=== PATIENT | male | born 1985 | race American Indian/Alaskan Native ===

== ENCOUNTER 2021-07-30 05:34 | Emergency (ER) | payer OTHER ==
[2021-07-30 06:08] LABS: Bacteria,Urine 1+ /HPF (Negative); Bilirubin,Urine NEG (Negative); Blood,Urine NEG (Negative); Color,Urine Yellow (Yellow); Mucus,Urine 3+ /HPF; Urobilinogen,Urine < 2.0 mg/dL (<2.0)
[2021-07-30 06:09] LABS: RBC,Urine < 1.0 /HPF (0.0-6.0)
--- NOTE | 2021-07-30 07:32 | Emergency Department Report ---
ED Abdominal Pain HPI - General Chief Complaint: Abdominal Pain Stated Complaint: RT FLANK PAIN PUI?: No Time Seen by Provider: 07/30/21 07:13 Source: patient, EMS Mode of arrival: Ambulatory Limitations: No Limitations - History of Present Illness MD Complaint: flank pain -: Sudden, hour(s) Location: R flank Radiation: none Severity: moderate Quality: cramping Consistency: constant Improves With: nothing Worsens With: nothing Associated Symptoms: denies other symptoms, nausea. denies: vomiting, diarrhea, fever, chills, constipation, dysuria, hematemesis, hematochezia, melena, hematuria, anorexia, syncope - Related Data Previous Rx's Medication Instructions Recorded Last Taken Type Ondansetron [Zofran Odt] 4 mg PO Q8HR PRN #10 tab.rapdis 07/30/21 Unknown Rx traMADoL [Ultram] 50 mg PO Q6HR PRN #10 tablet 07/30/21 Unknown Rx Allergies Allergy/AdvReac Type Severity Reaction Status Date / Time No Known Allergies Allergy Verified 07/30/21 05:44 ED Review of Systems ROS: Stated complaint: RT FLANK PAIN Other details as noted in HPI Comment: All other systems reviewed and negative ED Past Medical Hx - Past Medical History Previous Medical History?: No - Surgical History Past Surgical History?: No - Family History Family history: no significant - Social History Smoking Status: Never Smoker Substance Use Type: None - Medications Home Medications: Home Medications Medication Instructions Recorded Confirmed Last Taken Type Ondansetron [Zofran Odt] 4 mg PO Q8HR PRN #10 tab.rapdis 07/30/21 Unknown Rx traMADoL [Ultram] 50 mg PO Q6HR PRN #10 tablet 07/30/21 Unknown Rx ED Physical Exam - General Limitations: No Limitations General appearance: alert, in no apparent distress - Head Head exam: Present: atraumatic, normocephalic - Eye Eye exam: Present: normal appearance - ENT ENT exam: Present: mucous membranes moist - Neck Neck exam: Present: normal inspection - Respiratory Respiratory exam: Present: normal lung sounds bilaterally. Absent: respiratory distress - Cardiovascular Cardiovascular Exam: Present: regular rate, normal rhythm. Absent: systolic murmur, diastolic murmur, rubs, gallop - GI/Abdominal GI/Abdominal exam: Present: soft, normal bowel sounds - Rectal Rectal exam: Present: deferred - Extremities Exam Extremities exam: Present: normal inspection - Back Exam Back exam: Present: normal inspection - Neurological Exam Neurological exam: Present: alert, oriented X3 - Psychiatric Psychiatric exam: Present: normal affect, normal mood - Skin Skin exam: Present: warm, dry, intact, normal color. Absent: rash ED Course Vital Signs 07/30/21 05:41 Temperature 99.2 F Pulse Rate 80 Respiratory 18 Rate Blood Pressure 139/86 O2 Sat by Pulse 100 Oximetry ED Medical Decision Making - Lab Data Result diagrams: 07/30/21 07:40 07/30/21 07:40 - Radiology Data Radiology results: report reviewed, image reviewed SEE REPORT - Medical Decision Making Lab Results 07/30/21 07/30/21 07/30/21 Range/Units 07:40 07:40 Unknown WBC 11.0 (4.5-11.0) K/mm3 RBC 4.81 (3.65-5.03) M/mm3 Hgb 12.9 (11.8-15.2) gm/dl Hct 39.2 (35.5-45.6) % MCV 82 L (84-94) fl MCH 27 L (28-32) pg MCHC 33 (32-34) % RDW 13.0 L (13.2-15.2) % Plt Count 292 (140-440) K/mm3 Sodium 137 (137-145) mmol/L Potassium 4.9 (3.6-5.0) mmol/L Chloride 100.2 (98-107) mmol/L Carbon Dioxide 24 (22-30) mmol/L Anion Gap 18 mmol/L BUN 16 (9-20) mg/dL Creatinine 1.4 H (0.8-1.3) mg/dL Estimated GFR > 60 ml/min BUN/Creatinine Ratio 11 % Glucose 113 H (75-100) mg/dL Calcium 10.2 (8.4-10.2) mg/dL Total Bilirubin 0.70 (0.1-1.2) mg/dL AST 33 (5-40) units/L ALT 17 (7-56) units/L Alkaline Phosphatase 76 (35-129) units/L Total Protein 7.7 (6.3-8.2) g/dL Albumin 5.1 H (3.9-5) g/dL Albumin/Globulin Ratio 2.0 % Lipase 18 (13-60) units/L Urine Color Yellow (Yellow) Urine Turbidity Clear (Clear) Urine pH 7.0 (5.0-7.0) Ur Specific [place] 1.028 (1.003-1.030) Urine Protein 30 mg/dl (Negative) mg/dL Urine Glucose (UA) Neg (Negative) mg/dL Urine Ketones Tr (Negative) mg/dL Urine Blood Neg (Negative) Urine Nitrite Neg (Negative) Urine Bilirubin Neg (Negative) Urine Urobilinogen < 2.0 (<2.0) mg/dL Ur Leukocyte Esterase Neg (Negative) Urine WBC (Auto) 1.0 (0.0-6.0) /HPF Urine RBC (Auto) < 1.0 (0.0-6.0) /HPF U Epithel Cells (Auto) 6.0 (0-13.0) /HPF Urine Bacteria (Auto) 1+ (Negative) /HPF Urine Mucus 3+ /HPF Vital Signs 07/30/21 05:41 Temperature 99.2 F Pulse Rate 80 Respiratory 18 Rate Blood Pressure 139/86 O2 Sat by Pulse 100 Oximetry Labs noted. Creatinine noted. CT noted. Patient given a liter of normal saline, Zofran and was treated for pain. Patient was educated on findings of his work-up today. He understands the importance of having a follow-up creatinine given the abnormal level today. He has no infection. It seems that he has passed the stone because his pain had nearly subsided when he got here. Patient is reliable for follow-up. Patient being discharged home with urology follow-up. He verbalizes understanding of discharge plan of care including diet, medications, activity and follow-up. On discharge patient pain-free, ambulatory and in no acute distress. - Differential Diagnosis RO UTI/RO STONE Critical care attestation.: If time is entered above; I have spent that time in minutes in the direct care of this critically ill patient, excluding procedure time. ED Disposition Clinical Impression: Kidney stone, HERBERT (acute kidney injury) Disposition: 01 HOME / SELF CARE / HOMELESS Is pt being admited?: No Does the pt Need Aspirin: No Condition: Stable Instructions: Kidney Stones, [id number] Additional Instructions: Stay well-hydrated with water Medications as ordered today Follow-up with urology as we discussed. There is a referral below. Tell them that your creatinine was elevated in the ER at 1.3, they should check to make sure it returned to normal. It appears that she had a kidney stone that passed on your CT scan Avoid Motrin Avoid alcohol You can use Tylenol for pain which is [id number] See attached instructions Prescriptions: traMADoL [Ultram] 50 mg PO Q6HR PRN #10 tablet PRN Reason: Pain Ondansetron [Zofran Odt] 4 mg PO Q8HR PRN #10 tab.rapdis PRN Reason: Vomiting Referrals: IMAN SWENSON MD [Staff Physician] - 3-5 Days CHRISTA LANDRUM MD [Staff Physician] - 3-5 Days Forms: Work/School Release Form(ED) Time of Disposition: 10:32
[2021-07-30] MEDS ORDERED: ONDANSETRON 4 MG/2 ML INJ IV ONE ×2 (07:33→10:31)
[2021-07-30] MEDS ORDERED: SODIUM CHLORIDE 0.9% 1000 ML 1,000 ML IV ONE (07:33)
[2021-07-30 08:11] LABS: Hematocrit 39.2 % (35.5-45.6); Hemoglobin 12.9 gm/dl (11.8-15.2); Mean Corpuscular HGB Conc 33 % (32-34); Mean Corpuscular Volume 82 fl (84-94); Platelet Count 292 K/mm3 (140-440); Red Blood Count 4.81 M/mm3 (3.65-5.03)
[2021-07-30 08:29] LABS: Alanine Aminotransferase 17 units/L (7-56); Albumin 5.1 g/dL (3.9-5); BUN/Creatinine Ratio 11; Blood Urea Nitrogen 16 mg/dL (9-20); Calcium 10.2 mg/dL (8.4-10.2); Hemolysis Index 5
--- NOTE | 2021-07-30 09:38 | Cat Scan Report ---
CT ABDOMEN AND PELVIS WITHOUT CONTRAST INDICATION / CLINICAL INFORMATION: Right flank pain. TECHNIQUE: All CT scans at this location are performed using CT dose reduction for ALARA by means of automated exposure control. COMPARISON: None available. FINDINGS: ABDOMEN: There is mild right pelvocaliectasis and ureterectasis compared to the left. There is mild r ight perinephric soft tissue stranding. There is a 2 mm nonobstructive calculus in the upper pole of the left kidney. There are several additional very tiny calculi scattered throughout the remainder of the left kidney. I do not identify a right renal calculus. There is no evidence of a renal mass. The liver, spleen, gallbladder, bile ducts, pancreas, adrenal glands and bowel demonstrate no signifi cant abnormality. No adenopathy is present. No vascular abnormality is seen. There is mild fibrocalci fic scarring in the left lower lobe posteriorly. PELVIS: The right ureter is mildly dilated to the ureterovesical junction without a cause seen. The d istal left ureter, urinary bladder, prostate gland and seminal vesicles are normal. There is a small calcified appendicolith in the distal appendix without acute inflammation. There is a tiny fat-containing periumbilical hernia without complication. I see no evidence of diverticulitis. No abnormal mass or fluid collection is present. No acute osseous abnormality. IMPRESSION: 1. Mild right pelvocaliectasis, ureterectasis and perinephric soft tissue stranding without a cause s een. Differential diagnosis includes a recently passed ureteral calculus versus acute pyelonephritis. 2. Minimal nonobstructive left nephrolithiasis. 3. Calcified appendicolith without CT evidence of appendicitis. Signer Name: Israel Mitchell MD Signed: 07/30/2021 9:33 AM Workstation Name: [id number]
[2021-07-30] MEDS ORDERED: HYDROcodone/ACETAMINOPHEN 5-325 MG TAB PO ONE (10:31)
[2021-07-30 11:38] VITALS: BP 118/69
== END 2021-07-30 11:38 | disposition home or self-care (01) ==
LOC: ED 05:34
DX: N20.2 Calculus of kidney with calculus of ureter (principal); N17.9 Acute kidney failure, unspecified
CPT/HCPCS: 36415; 74176; 80053; 81001; 83690; 85027; 96361; 96374; 96376; 99284; J2405